=== PATIENT | male | born 1940 | race Caucasian/White ===

== ENCOUNTER → 2018-03-29 | Outpatient (CLI) | payer MEDICARE ==
[2018-03-29 14:30] LABS: COLLAGEN EPINEPHRINE 203 SECONDS (74-162)
[2018-03-29 15:00] LABS: COLLAGEN ADP 127 SECONDS (56-103)
== END ==
LOC: M LAB 13:27
DX: H02.423 Myogenic ptosis of bilateral eyelids (principal)
CPT/HCPCS: 36415

== ENCOUNTER 2018-04-10 05:57 | Day surgery (SDC) | payer MEDICARE ==
[2018-04-10] MEDS ORDERED: LR 1,000 ML IV (06:30)
[2018-04-10] MEDS ORDERED: LIDOCAINE 1% MDV 20ML VIAL SC (06:30)
[2018-04-10] MEDS ORDERED: PROPOFOL 200 MG/20 ML VIAL As Ordered (07:15)
[2018-04-10] MEDS ORDERED: fentaNYL 100 MCG/2 ML INJECTION (J3010) As Ordered (07:15)
[2018-04-10] MEDS ORDERED: MIDAZOLAM INJ 2 MG/2 ML VIAL (J2250) As Ordered (07:16)
[2018-04-10 07:25] LABS: COLLAGEN ADP 106 SECONDS (56-103); COLLAGEN EPINEPHRINE 183 SECONDS (74-162)
[2018-04-10] MEDS: BUPIVACAINE 0.75% 10 ML VIAL As Ordered (07:49)
[2018-04-10] MEDS: TOBRADEX OPHTH OINT 3.5 GM As Ordered (07:49)
[2018-04-10] MEDS: HYALURONIDASE 150UNIT/ML 1ML VIAL (AMPHADASE) (J3470) As Ordered ×2 (07:49→07:50)
[2018-04-10] MEDS: CIPROFLOXACIN 0.3% OPHTH OINTMENT As Ordered (07:49)
[2018-04-10] MEDS: LIDOCAINE W/EPINEPHRINE 1% 20ML VIAL As Ordered (07:49)
[2018-04-10] MEDS: dexameTHASONE 4 MG/ML 1ML VIAL (J1100) IV (07:50)
[2018-04-10] MEDS: TETRACAINE 0.5% OPHTH SOLN 4ML As Ordered (07:50)
[2018-04-10] MEDS: SODIUM BICARBONATE 8.4% INJ 50MEQ 50 ML VIAL As Ordered (07:50)
[2018-04-10] MEDS ORDERED: dexameTHASONE 4 MG/ML 1ML VIAL (J1100) As Ordered (07:53)
== END 2018-04-10 10:25 | disposition home or self-care (01) ==
LOC: M SDC 05:57
DX: H02.423 Myogenic ptosis of bilateral eyelids (principal); H02.834 Dermatochalasis of left upper eyelid; H02.831 Dermatochalasis of right upper eyelid; I10 Essential (primary) hypertension; E78.00 Pure hypercholesterolemia, unspecified; E03.9 Hypothyroidism, unspecified; F41.9 Anxiety disorder, unspecified; Z79.82 Long term (current) use of aspirin; Z79.899 Other long term (current) drug therapy
CPT/HCPCS: 67904